=== PATIENT | male | born 1950 | race Caucasian/White ===

== ENCOUNTER → 2016-07-08 | Outpatient (CLI) | payer OTHER | LOC: FIMAGING 12:53 | PROVIDERS: ATTEND Family Medicine | DX: M79.651 Pain in right thigh (principal); M16.11 Unilateral primary osteoarthritis, right hip ==

== ENCOUNTER 2018-03-19 21:49 | Emergency (ER) | payer OTHER ==
[2018-03-19] MEDS ORDERED: NS 1,000 ML IV ONE (22:55)
--- NOTE | 2018-03-19 23:00 | EDPHY ---
H & P Stated Complaint: constipation, bloated, nausea Time Seen by Provider: 03/19/18 22:24 HPI/ROS: HPI The patient presents with constipation and urinary retention for the last 2 days. He believes his last bowel movement was at 7:00 a.m. Yesterday and was normal. He has not had a bowel movement since then. He has had increasing abdominal distention and pressure in his lower abdomen. He has had nausea without vomiting and limited p.o. Intake because of his symptoms. He has tried using an enema as well as drinking smooth move tea without improvement in his symptoms. He does have a history of BPH though has had urinary retention which is much more severe than usual. He was up much of the night last night voiding frequently with just small amounts of urine. He does not have any hematuria. Does not have any fevers or chills. He had an appendectomy about 30 years ago.. REVIEW OF SYSTEMS 10 systems were reviewed and negative with the exception of the elements mentioned in the history of present illness. PMHx: BPH, remote history appendectomy Soc Hx: Here with his , occasional alcohol use PHYSICAL General Appearance: Alert, no distress Eyes: Pupils equal and round no pallor or injection ENT, Mouth: Mucous membranes moist Respiratory: There are no retractions, lungs are clear to auscultation Cardiovascular: Regular rate and rhythm Gastrointestinal: Abdomen is slightly distended, tender just below his umbilicus, no masses, bowel sounds normal Neurological: A&O, moves all extremities Skin: Warm and dry, no rashes Musculoskeletal: Neck is supple non tender Extremities: symmetrical, full range of motion Psychiatric: Patient is oriented X 3, there is no agitation Source: Patient Exam Limitations: No limitations - Personal History Current Tetanus Diphtheria and Acellular Pertussis (TDAP): Yes - Medical/Surgical History Hx Asthma: No Hx Chronic Respiratory Disease: No Hx Diabetes: No Hx Cardiac Disease: No Hx Renal Disease: No Hx Cirrhosis: No Hx Alcoholism: No Other PMH: BPH - Social History Smoking Status: Never smoked Constitutional: Initial Vital Signs Temperature (C) 37 C 03/19/18 21:55 Heart Rate 89 03/19/18 21:55 Respiratory Rate 20 03/19/18 21:55 Blood Pressure 140/79 H 03/19/18 21:55 O2 Sat (%) 95 03/19/18 21:55 O2 Delivery Mode Room Air Allergies/Adverse Reactions: No Known Allergies Allergy (Unverified 03/19/18 21:55) Home Medications: Medication Instructions Recorded Cialis 03/19/18 Tamsulosin HCl 03/19/18 Medical Decision Making - Diagnostics Imaging Results: Imaging Impressions Abdomen CT 03/19/18 22:55 Impression: 1. Pronounced prostatomegaly resulting in a high-grade bladder outlet stenosis, with marked distention of the urinary bladder (an approximate volume of 1300 mL ) and [id number] bilateral hydroureteronephrosis. 2. Right-sided constipation. 3. Increased attenuation of the vertebral bodies. Within the context of an enlarged prostate gland, correlation with a serum PSA level is suggested. Findings were discussed with Joan Garrison MD at 23:41, on 03/19/2018. Imaging: Discussed imaging studies w/ call taker Radiologist, I viewed and interpreted images myself Differential Diagnosis: 67-year-old male with history of BPH presents with constipation, urinary retention, bloating for the last 2 days. On exam, vital signs are normal, he does have significant suprapubic tenderness as well as distension. Plan for CT scan abdomen pelvis, basic labs, UA. Differential diagnosis includes constipation, bowel obstruction, urinary retention due to BPH. In the emergency department, labs were checked and were unremarkable. Patient had CT scan performed which did demonstrate some degree of constipation but more prominently was his distended bladder and enlarged prostate. I suspect urinary retention has lead to constipation in his case. Patient was unable to void much in the emergency department. Thus Batres catheter was placed with return of about 1200 mL of clear urine. The patient did explain that he had a prostate biopsy about 1 year ago which was negative for any malignancy. I have instructed him to increase his dose of tamsulosin for now. He has already called his urologist and will follow-up tomorrow. Plan for Batres to remain in place for the next several days. I will give him magnesium citrate for his constipation and have advised that he can use MiraLax at home. He is happy with this plan and will be discharged with his . - Data Points Laboratory Results: Laboratory Results 03/19/18 23:05 03/19/18 03/19/18 23:05 23:05 WBC 9.72 10^3/uL H 10^3/uL (3.80-9.50) RBC 4.67 10^6/uL 10^6/uL (4.40-6.38) Hgb 14.9 g/dL g/dL (13.7-17.5) POC Hgb 15.6 gm/dL gm/dL (13.7-17.5) Hct 43.6 % % (40.0-51.0) POC Hct 46 % % (40-51) MCV 93.4 fL fL (81.5-99.8) MCH 31.9 pg pg (27.9-34.1) MCHC 34.2 g/dL g/dL (32.4-36.7) RDW 12.3 % % (11.5-15.2) Plt Count 211 10^3/uL 10^3/uL (150-400) MPV 10.1 fL fL (8.7-11.7) Neut % (Auto) 84.9 % H % (39.3-74.2) Lymph % (Auto) 8.4 % L % (15.0-45.0) Moore % (Auto) 6.2 % % (4.5-13.0) Eos % (Auto) 0.0 % L % (0.6-7.6) Baso % (Auto) 0.3 % % (0.3-1.7) Nucleat RBC Rel Count 0.0 % % (0.0-0.2) Absolute Neuts (auto) 8.25 10^3/uL H 10^3/uL (1.70-6.50) Absolute Lymphs (auto) 0.82 10^3/uL L 10^3/uL (1.00-3.00) Absolute Monos (auto) 0.60 10^3/uL 10^3/uL (0.30-0.80) Absolute Eos (auto) 0.00 10^3/uL L 10^3/uL (0.03-0.40) Absolute Basos (auto) 0.03 10^3/uL 10^3/uL (0.02-0.10) Absolute Nucleated RBC 0.00 10^3/uL 10^3/uL (0-0.01) Immature Gran % 0.2 % % (0.0-1.1) Immature Gran # 0.02 10^3/uL 10^3/uL (0.00-0.10) POC Sodium 140 mEq/L mEq/L (135-145) POC Potassium 3.8 mEq/L mEq/L (3.3-5.0) POC Chloride 102 mEq/L mEq/L (97-110) POC BUN 15 mg/dL mg/dL (7-23) POC Creatinine 0.9 mg/dL mg/dL (0.7-1.3) POC Glucose 143 mg/dL H mg/dL (70-100) Medications Given: Discontinued Medications Sodium Chloride (Ns) 1,000 mls @ 0 mls/hr IV EDNOW ONE; Wide Open PRN Reason: Protocol Stop: 03/19/18 22:56 Last Admin: 03/19/18 23:03 Dose: 1,000 mls Magnesium Citrate (Magnesium Citrate) 300 ml PO ONCE ONE Stop: 03/20/18 00:42 Last Admin: 03/20/18 01:06 Dose: 1 btl Point of Care Test Results: Chemistry 03/19/18 23:05 POC Sodium 140 mEq/L mEq/L (135-145) POC Potassium 3.8 mEq/L mEq/L (3.3-5.0) POC Chloride 102 mEq/L mEq/L (97-110) POC BUN 15 mg/dL mg/dL (7-23) POC Creatinine 0.9 mg/dL mg/dL (0.7-1.3) POC Glucose 143 mg/dL H mg/dL (70-100) ISTAT H&H 03/19/18 23:05 POC Hgb 15.6 gm/dL gm/dL (13.7-17.5) POC Hct 46 % % (40-51) Departure - Departure Disposition: Home, Routine, Self-Care Clinical Impression: Urinary retention, Enlarged prostate Constipation Qualifiers: Constipation type: unspecified constipation type Qualified Code(s): K59.00 - Constipation, unspecified Condition: Good Instructions: Urinary Retention in Men (ED), Batres Catheter Placement and Care (ED) Additional Instructions: Please follow-up with Dr. Kern by phone call tomorrow. The Batres catheter should stay in place until you are re-evaluated by him. You can take a laxative we are giving you if you're not able to have a bowel movement in the next 24 hr. If you still have constipation after this, I recommend you start taking MiraLax 17 g once daily for about a week. Referrals: Kiran Zapata MD [Primary Care Provider] - As per Instructions Abdirizak Kern MD [Medical Doctor] - As per Instructions
[2018-03-19] MEDS ORDERED: IOPAMIDOL (ISOVUE 370) 100 ML BTL IV ONE (23:07)
[2018-03-19 23:15] LABS: PLATELET COUNT 211 10^3/uL (150-400)
[2018-03-20] MEDS ORDERED: LIDOCAINE 2% JELLY 20 ML (UROJECT) ONE (00:01)
[2018-03-20] MEDS ORDERED: MAGNESIUM CITRATE 300 ML BOTTLE PO ONE (00:41)
[2018-03-20 01:08] VITALS: BP 120/66
== END 2018-03-20 01:08 | disposition home or self-care (01) ==
PROC: 0T9B70Z Drainage of Bladder with Drainage Device, Via Natural or Artificial Opening (ICD-10-PCS; principal; 2018-03-19)
DX: N40.1 Benign prostatic hyperplasia with lower urinary tract symptoms (principal); R33.9 Retention of urine, unspecified; N13.30 Unspecified hydronephrosis; K59.00 Constipation, unspecified; E86.9 Volume depletion, unspecified
CPT/HCPCS: 51702; 74177; 96360; 99285; Q9967; 82435-PO; 82565-PO; 82947-PO; 84132-PO; 84295-PO; 84520-PO; 85014-ER

== ENCOUNTER 2018-04-02 11:55 | Observation (INO) | payer OTHER ==
--- NOTE | 2018-04-01 18:30 | GHP ---
ADMISSION DIAGNOSIS: Urinary retention. HISTORY OF PRESENT ILLNESS: This is a 67-year-old gentleman who presented with urinary retention. He has had a PSA in the past that is below 4 and he has been on alpha blockers without success, and he had an MRI of the prostate which showed a PI-RADS 3 and biopsy resulted in benign results. He has had a Batres since 03/20/2018, and at the present time, he is admitted for a TURP. He has had a cystoscopy which revealed significant prostatomegaly and a large intravesical lobe of the prostate. He had a prostate ultrasound in 2017 that revealed a prostate volume of 100 g, PSA density 0.02. A large intravesical lobe was noted. The MRIs of 06/24/2016 revealed a prostate of 106 g and an intravesical lobe and the PI-RADS 3 being equivocal. At the present time, he is admitted for a TURP. PAST MEDICAL HISTORY: Some erectile dysfunction, family history of prostate cancer, urinary retention is noted. PREVIOUS SURGERIES: Appendectomy, cystoscopy, vasectomy, eye surgery, and Mohs procedure. MEDICATIONS: Include Advil, Flomax, supplements. ALLERGIES: No known drug allergies. FAMILY HISTORY: Ovarian cancer, prostate cancer. SOCIAL HISTORY: Moderate alcohol consumption, nonsmoker. REVIEW OF SYSTEMS: Negative cardiac, respiratory, GI, and endocrine. PHYSICAL EXAMINATION: VITAL SIGNS: Stable. CHEST: Clear. HEART: Regular rate and rhythm. ABDOMEN: Normal. No organomegaly, rebound, or guarding. EXTREMITIES: Lower extremities are normal. ASSESSMENT AND PLAN: At the present time, he is admitted for a transurethral resection of prostate. Indication and complications have been addressed. Written and verbal consent were obtained. He is admitted for the above procedure. Copy requested to: Dr. Zapata /[id number]/MODL MTDD
[2018-04-02] MEDS ORDERED: MIDAZOLAM 2 MG/2 ML VIAL IVP ONE (12:05)
[2018-04-02] MEDS ORDERED: ceFAZolin 2 GM/DEXTROSE 100 ML IV ONE (12:13)
[2018-04-02] MEDS ORDERED: GENTAMICIN 100 MG/NACL 100 ML IV ONE (12:13)
[2018-04-02] MEDS ORDERED: LIDOCAINE 1% 2 ML INJ ID PRN (12:18)
[2018-04-02] MEDS ORDERED: LR 1,000 ML IV ONE (12:18)
--- NOTE | 2018-04-02 12:52 | PDHPUP ---
History & Physical Update H&P update statement: This history and physical update is based on an assessment of the patient which was completed after admission or registration (within 24 hours), but prior to the surgery/procedure. H&P update: H&P reviewed & patient examined, no change in patient's condition since H&P completed
--- NOTE | 2018-04-02 13:05 | PDANEPAE ---
ANE Past Medical History - Cardiovascular History Hx Hypertension: No Hx Arrhythmias: No Hx Chest Pain: No Hx Coronary Artery / Peripheral Vascular Disease: No Hx CHF / Valvular Disease: No Hx Palpitations: No - Pulmonary History Hx COPD: No Hx Asthma/Reactive Airway Disease: No Hx Recent Upper Respiratory Infection: No Hx Oxygen in Use at Home: No Hx Sleep Apnea: No - Neurologic History Hx Cerebrovascular Accident: No Hx Seizures: No Hx Dementia: No - Endocrine History Hx Diabetes: No - Renal History Hx Renal Disorders: No - Liver History Hx Hepatic Disorders: No - Neurological & Psychiatric Hx Hx Neurological and Psychiatric Disorders: No - Cancer History Hx Cancer: Yes Cancer History Comment: basal cell carcinoma face/upper back/shoulders - Congenital Disorder History Hx Congenital Disorders: No - GI History GERD: no Hx Gastrointestinal Disorders: No - Chronic Pain History Chronic Pain: No - Surgical History Prior Surgeries: eyelid surgery 07/2017, open appendectomy 1980, tonsilectomy 1955 ANE Review of Systems Review of Systems: - Exercise capacity Exercise capacity: >=4 METS METS (RN): 6 METS ANE Patient History - Allergies Allergies/Adverse Reactions: No Known Allergies Allergy (Verified 03/26/18 13:48) - Home Medications Home medications: home medication list seen and reviewed Home Medications: Tamsulosin HCl [Flomax 0.4 MG (*)] 0.8 mg PO HS 03/19/18 [Last Taken Unknown] Acetaminophen [Tylenol 325mg (*)] 325 mg PO DAILY PRN 03/26/18 [Last Taken Unknown] Herbals/Supplements -Info Only 1 ea PO DAILY 03/26/18 [Last Taken Unknown] Meloxicam 15 mg PO DAILY 03/26/18 [Last Taken Unknown] Multivitamins [Multivitamin (*)] 1 each PO DAILY 03/26/18 [Last Taken Unknown] Vanzant-3 Fatty Acids [Fish Oil 1000 mg (*)] 1,000 mg PO DAILY 03/26/18 [Last Taken Unknown] Vitamin B Complex [Vitamin B Complex (OTC)] 1 each PO DAILY 03/26/18 [Last Taken Unknown] - NPO status NPO Status: no food or drink >8 hours NPO Since - Liquids (Date): 04/02/18 NPO Since - Liquids (Time): 07:00 NPO Since - Solids (Date): 04/01/18 NPO Since - Solids (Time): 18:00 - Smoking Hx Smoking Status: Never smoked ANE Labs/Vital Signs - Vital Signs Vital Signs: reviewed preoperatively; see RN documention for details Blood Pressure: 131/83 Heart Rate: 80 Respiratory Rate: 18 O2 Sat (%): 95 Height: 176.53 cm Weight: 86.183 kg ANE Physical Exam - Airway Neck exam: FROM Mallampati Score: Class 2 Mouth exam: normal dental/mouth exam - Pulmonary Pulmonary: clear to auscultation - Cardiovascular Cardiovascular: regular rate and rhythym - ASA Status ASA Status: II ANE Anesthesia Plan Anesthesia Plan: GA w LMA
[2018-04-02] MEDS ORDERED: PROPOFOL 200 MG/20 ML VIAL ONE (13:06)
[2018-04-02] MEDS ORDERED: fentaNYL 100 MCG/2 ML INJ ONE (13:06)
[2018-04-02] MEDS ORDERED: LIDOCAINE 2% JELLY 20 ML (UROJECT) ONE (13:08)
[2018-04-02] MEDS ORDERED: DEXAMETHASONE 4 MG/ML VIAL ONE (13:35)
[2018-04-02] MEDS ORDERED: ONDANSETRON 4 MG/2 ML VIAL ONE (13:35)
[2018-04-02] MEDS ORDERED: LR 500 ML IV PRN (14:24)
[2018-04-02] MEDS ORDERED: PROMETHAZINE HCL 25 MG/ML INJ IVP PRN (14:24)
[2018-04-02] MEDS ORDERED: METOCLOPRAMIDE 10 MG/2 ML VIAL IVP PRN (14:24)
[2018-04-02] MEDS ORDERED: NALOXONE HCL 0.4 MG/ML INJ IVP PRN (14:24)
[2018-04-02] MEDS ORDERED: fentaNYL 100 MCG/2 ML INJ IVP PRN (14:24)
[2018-04-02] MEDS ORDERED: LABETALOL HCL 5 MG/ML 20 ML MDV IVP PRN (14:24)
[2018-04-02] MEDS ORDERED: ONDANSETRON 4 MG/2 ML VIAL IVP PRN ×2 (14:24→15:00)
[2018-04-02] MEDS ORDERED: MEPERIDINE 25 MG/0.5 ML AMP IVP PRN (14:24)
[2018-04-02] MEDS ORDERED: DIAZEPAM 5 MG/ML 1 ML SYR IVP PRN (14:24)
[2018-04-02] MEDS ORDERED: HYDROmorphONE/DILAUDID 2 MG/ML INJ IVP PRN (14:24)
[2018-04-02] MEDS ORDERED: ALBUTEROL 3 ML DEYVIAL IH PRN (14:24)
[2018-04-02] MEDS ORDERED: ACETAMINOPHEN 325 MG TAB PO PRN ×2 (14:57→15:00)
--- NOTE | 2018-04-02 14:57 | POSTOPPROG ---
Post Op Note Date of Operation: 04/02/18 (dictated) Surgeon: Abdirizak Kern Anesthesiologist: Lorie Anesthesia: LMA Pre-op Diagnosis: bph / retention Procedure: turp Inf/Abcess present in the surg proc area at time of surgery?: No EBL: 50-100 Drains: Other (3 way gibbs 90 cc balloon) Specimen(s): sent
[2018-04-02] MEDS ORDERED: HYDROCODONE/APAP 5/325 TAB PO PRN (14:58)
[2018-04-02] MEDS ORDERED: OPIUM/BELLADONNA ALKALO SUPP PR PRN (14:58)
[2018-04-02] MEDS ORDERED: ONDANSETRON DISINTEGRATING 4 MG TAB PO PRN (15:00)
[2018-04-02] MEDS ORDERED: ZOLPIDEM TARTRATE 5 MG TAB PO PRN (15:00)
--- NOTE | 2018-04-02 15:02 | GOP ---
DATE OF OPERATION: 04/02/2018 SURGEON: Abdirizak Kern MD ANESTHESIA: Dr. Melo provided general anesthesia. PREOPERATIVE DIAGNOSIS: 1. BPH. 2. Urinary retention. POSTOPERATIVE DIAGNOSIS: 1. BPH. 2. Urinary retention. PROCEDURE PERFORMED: Transurethral resection of the prostate. FINDINGS: SPECIMENS: Sent to Pathology. DESCRIPTION OF PROCEDURE: After appropriate prep and drape in the normal sterile fashion, dorsal lit hotomy position, and an appropriate time-out, the scope was passed in the bladder under direct vision . He had +4 trabeculation of bladder and he had a large prostate with intravesical lobe or hypertrop hy. Started by taking down the intravesical lobe of the prostate and then the right lateral lobe and right posterior lobe resected. Left lateral lobe and left portion of the posterior lobe resected. At the end of the procedure, the bladder was Ellik'd free of all chips and clots. Visualization reve aled no residual chips or clots. Bladder was atraumatic, and ureteral orifices preserved, verumontan um preserved. External sphincter approximated at the midline symmetrically. I filled his bladder, a nd then with a Crede maneuver, he had an excellent flow of urine. Uro-Jet placed in the urethra, and then a 3-way catheter passed in the bladder with 90 cc of fluid placed in the balloon. He will be a dmitted for postop care. COMPLICATIONS: None encountered. /[id number]/MODL
[2018-04-02] MEDS: D5W LR 1,000 ML IV SCH (18:05)
[2018-04-03] MEDS: D5W LR 1,000 ML IV SCH (06:53)
[2018-04-03 07:22] VITALS: BP 96/63
--- NOTE | 2018-04-03 08:18 | SOAPPROG ---
SOAP Progress Note Assessment/Plan: Assessment: BPH with obstruction/lower urinary tract symptoms Acute POD # 1 , consider removal of gibbs and DC home Plan: DC gibbs and DC home 04/03/18 09:15 Subjective: ok Objective: Vital Signs Temp Pulse Resp BP Pulse Ox 36.7 C 80 16 96/63 L 92 04/03/18 07:19 04/03/18 07:19 04/03/18 07:19 04/03/18 07:19 04/03/18 07:19 04/02/18 04/03/18 04/04/18 05:59 05:59 05:59 Intake Total 2330 Output Total 2300 Balance 30 Physical Exam - Physical Exam General Appearance: alert Respiratory: No respiratory distress Neuro/Psych: alert, oriented x 3 ICD10 Worksheet Patient Problems: Problems Problem Status Onset BPH with obstruction/lower urinary tract symptoms Acute - ICD10 Problem Qualifiers (1) BPH with obstruction/lower urinary tract symptoms
--- NOTE | 2018-04-03 09:25 | ASDISCHSUM ---
Discharge Information Plan Status:Home with No Needs Medically Cleared to Leave: Discharge Date: CM D/C Disposition:Home, Routine, Self-Care ADT D/C Disposition:Home, Routine, Self-Care Projected Discharge Date: Transportation at D/C:Family Discharge Delay Reason: Follow-Up Date: Discharge Slot: Final Diagnosis: Placement Information Patient Contact Information Contact Name:ARLET Relationship: Address:[address] City:[place] Alternate Phone: State/Zip Code:[place] [address] Email: Financial Information Financial Class:Medicare Advantage Plans Primary Plan Desc:[facility] ADV[employer]AGE PLANS Primary Plan Number:[id number] Secondary Plan Desc: Secondary Plan Number: Assessment Information LACE LACE Length of stay for Answers: Less than 1 day current admission Acuity / Level of Answers: No Care: Did the patient have an inpatient admission? # of Emergency department Answers: 1-2 visits in the last 6 months Score: 1 Date Signed: 04/03/2018 09:24 AM Electronically Signed By:Paula Zabala Intervention Information
== END 2018-04-03 12:35 | disposition home or self-care (01) ==
LOC: INTOOBSV 11:55 → F1N 11:55
PROVIDERS: ADMIT Specialist; ATTEND Specialist
PROC: 0VB08ZZ Excision of Prostate, Via Natural or Artificial Opening Endoscopic (ICD-10-PCS; principal; 2018-04-02 13:30)
DX: N40.1 Benign prostatic hyperplasia with lower urinary tract symptoms (principal); R33.8 Other retention of urine
CPT/HCPCS: 52601; G0378; J0690; J1100; J1580; J2250; J2405; J2704; J3010

== ENCOUNTER 2018-04-04 05:19 | Emergency (ER) | payer OTHER ==
[2018-04-04 05:28] VITALS: BP 146/102
[2018-04-04] MEDS ORDERED: LIDOCAINE 2% JELLY 20 ML (UROJECT) ONE (05:59)
--- NOTE | 2018-04-04 05:59 | EDPHY ---
H & P Stated Complaint: TURP , now urinary retention Time Seen by Provider: 04/04/18 05:31 HPI/ROS: HPI The patient presents with urinary retention for the last several hours. He underwent a TURP 2 days ago and was able to void some on his own. At about 8: 00 p.m. Last night he noticed it was more difficult to void and he had hematuria. He tried all night to urinate on his own but was unable to so he comes into the emergency department. He recently had a Batres catheter in place for urinary retention related to BPH. He underwent cystoscopy earlier in the week and then a TURP 2 days ago. He did have some blood clots with urination required 3 way Batres irrigation. He does not have any fever, back pain a, nausea or vomiting. REVIEW OF SYSTEMS 10 systems were reviewed and negative with the exception of the elements mentioned in the history of present illness. PMHx: BPH status post TURP and cystoscopy, followed by Dr. Kern of [facility] Hx: Housed, here with his PHYSICAL General Appearance: Alert, no distress Eyes: Pupils equal and round no pallor or injection ENT, Mouth: Mucous membranes moist Respiratory: There are no retractions, lungs are clear to auscultation Cardiovascular: Regular rate and rhythm Gastrointestinal: Abdomen is soft and non-tender, no masses, bowel sounds normal Neurological: A&O, moves all extremities Skin: Warm and dry, no rashes Musculoskeletal: Neck is supple non tender Extremities: symmetrical, full range of motion Psychiatric: Patient is oriented X 3, there is no agitation Source: Patient Exam Limitations: No limitations - Personal History Current Tetanus/Diphtheria Vaccine: Yes Current Tetanus Diphtheria and Acellular Pertussis (TDAP): Yes - Medical/Surgical History Hx Asthma: No Hx Chronic Respiratory Disease: No Hx Diabetes: No Hx Cardiac Disease: No Hx Renal Disease: No Hx Cirrhosis: No Hx Alcoholism: No Hx HIV/AIDS: No Hx Splenectomy or Spleen Trauma: No Other PMH: BPH, TURP - Social History Smoking Status: Never smoked Constitutional: Initial Vital Signs Temperature (C) 36.5 C 04/04/18 05:21 Heart Rate 75 04/04/18 05:21 Respiratory Rate 18 04/04/18 05:21 Blood Pressure 146/102 H 04/04/18 05:21 O2 Sat (%) 96 04/04/18 05:21 O2 Delivery Mode Room Air Allergies/Adverse Reactions: No Known Allergies Allergy (Verified 04/04/18 05:20) Home Medications: Medication Instructions Recorded NK [No Known Home Meds] 04/04/18 Medical Decision Making Differential Diagnosis: This is a 67-year-old male who is status post cystoscopy and TURP performed earlier this week who now presents with urinary retention with hematuria. Here in the emergency department, bladder scan revealed 700 mL of urine. UA demonstrates blood without evidence of infection. Three way Batres was placed as the patient had required bladder irrigation earlier this week. This easily drained about 300 mL of Warren-Aid colored urine. The patient was transitioned to leg bag. No further irrigation was needed. He will follow up with Dr. Kern later this week. Departure - Departure Disposition: Home, Routine, Self-Care Clinical Impression: BPH with obstruction/lower urinary tract symptoms, Acute retention of urine Condition: Good Instructions: Batres Catheter Placement and Care (ED) Additional Instructions: Please follow-up with Dr. Kern on Friday. Referrals: Kiran Zapata MD [Primary Care Provider] - As per Instructions Abdirizak Kern MD [Medical Doctor] - As per Instructions
== END 2018-04-04 07:08 | disposition home or self-care (01) ==
DX: N40.1 Benign prostatic hyperplasia with lower urinary tract symptoms (principal); N13.9 Obstructive and reflux uropathy, unspecified; R33.9 Retention of urine, unspecified